=== PATIENT | female | born 1965 | race Caucasian/White ===

== ENCOUNTER → 2017-02-23 | Outpatient (CLI) | payer OTHER ==
[~2017-02-23] MED LIST: AMLODIPINE BESYL5 MG PO; CLARITIN10 M2 PO; CYANOCOBALAM1000 MCG PO; EFFEXOR37.5 MG PO; GARLIC1000 MG PO; HUMALOG100 U/M2; LANTUS SOLOSTAR3 ML SUBQ; LISINOPRIL2.5 MG PO; LOSARTAN POTAS100 MG PO; MULTIPLE VITAMI1 T11 PO; PRAVASTATIN SOD20 MG PO; VITAMIN D1000 UNI1 PO
--- NOTE | ~2017-02-23 | MR18 ---
[facility] A Service of [facility] RADIOLOGY TEXT RESULTS PATIENT: NA SHETH LOCATION: [facility] : 61 UNIT #: [id number] AGE: [address]: Jesika Burgos MD SEX: F ORDER DR: [id number] [facility] [address] [place], [place] [address] [id number] O MR#: [id number] Acc #: [id number] NAME: NA SHETH : 1965 SEX: F STUDY DATE/TIME: 02/23/2017 16:07 UNIT: [facility] ROOM: STUDY DESCRIPTION: MR Brain Wo Contrast Attending Physician: Jesika Burgos M.D. Referring Physician: Jesika Burgos M.D. Ordering Physician: Jesika Burgos M.D. Primary Care Physician: Jesika Burgos M.D. MRI CENTER REPORT This report is preliminary unless electronic signature is present. EXAM Brain MRI HISTORY Constant headaches around the right eye since 2003. Previous orbital surgery on the right. TECHNIQUE Multiplanar imaging of the brain was performed with short and long TR. FINDINGS On diffusion weighted images there is no evidence of abnormal restricted diffusion to suggest a recent infarct. The routine brain images show mild chronic ischemic changes in the periventricular deep white matter bilaterally. There is no evidence of mass lesion, hemorrhage or edema. 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 Extraaxial structures are otherwise unremarkable. 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 Postoperative changes in the right orbit. Otherwise negative. Dictated by... Tommy Sandy M.D. THIS IS AN ELECTRONICALLY VERIFIED REPORT Tommy Sandy M.D. at 02/24/2017 4:33 PM RLF/ne TD: 02/24/2017 13:47 JOB #: [id number] MRI CENTER REPORT [facility] A Service [facility] RADIOLOGY TEXT RESULTS PATIENT: NA SHETH LOCATION: [facility] : 61 UNIT #: [id number] AGE: [address]: Jesika Burgos MD SEX: F ORDER DR: Page 1 of 1 COPY
== END | disposition home or self-care (01) ==
LOC: CMRI 15:10
DX: R51 Headache (principal); I67.82 Cerebral ischemia; Z98.890 Other specified postprocedural states
CPT/HCPCS: 70551

== ENCOUNTER → 2017-02-25 | Outpatient (CLI) | payer OTHER ==
--- NOTE | ~2017-02-25 | MY11 ---
[facility] A Service of [facility] RADIOLOGY TEXT RESULTS PATIENT: NA SHETH LOCATION: [facility] : 61 UNIT #: [id number] AGE: [address]: Jesika Burgos MD SEX: F ORDER DR: [id number] [facility] [address] [place], [place] [address] [id number] O MR#: [id number] Acc #: [id number] NAME: NA SHETH : 1965 SEX: F STUDY DATE/TIME: 02/25/2017 9:25 UNIT: [facility] ROOM: STUDY DESCRIPTION: MY Mammogram Screening Dig Keagan Attending Physician: Jesika Burgos M.D. Referring Physician: Jesika Burgos M.D. Ordering Physician: Jesika Burgos M.D. Primary Care Physician: Jesika Burgos M.D. MEDICAL IMAGING REPORT This report is preliminary unless electronic signature is present EXAM Digital screening mammogram, 02/25/2017 HISTORY 51-year-old woman positive family history, maternal aunt and grandmother. Annual screening. COMPARISON Mammogram 01/17/2014 followup diagnostic mammogram 02/05/2014. FINDINGS Digital imaging of each breast was completed utilizing screening protocol. Review includes FDA-approved CAD device. Breast parenchyma is predominantly fatty replaced bilaterally. Mild subareolar duct prominence is noted in each breast. I see no breast mass. There are no interval occurring microcalcifications and no suspicious architectural deformity. IMPRESSION Negative mammogram. Annual screening recommended. Patients over the age of 40 are entered into a reminder system with target due date for the next mammogram. A result letter will also be sent to the patient. BIRADS: 1 Negative Dictated by... Chapin Park M.D. THIS IS AN ELECTRONICALLY VERIFIED REPORT Chapin Park M.D. at 02/25/2017 12:38 PM Ananth [facility] A Service of [facility] RADIOLOGY TEXT RESULTS PATIENT: NA SHETH LOCATION: [facility] #: [id number] : 61 UNIT #: [id number] AGE: [address]: Jesika Burgos MD SEX: F ORDER DR: TD: 02/25/2017 10:09 JOB #: [id number] MEDICAL IMAGING REPORT Page 1 of 1 COPY
== END | disposition home or self-care (01) ==
LOC: CWCC 08:48
DX: Z12.31 Encounter for screening mammogram for malignant neoplasm of breast (principal); Z80.3 Family history of malignant neoplasm of breast
CPT/HCPCS: G0202

== ENCOUNTER → 2017-07-07 | Outpatient (CLI) | payer OTHER | END | disposition home or self-care (01) | LOC: CECH 12:32 | DX: I10 Essential (primary) hypertension (principal) | CPT/HCPCS: 93306 ==